=== PATIENT | male | born 1995 | race Caucasian/White ===

== ENCOUNTER 2018-06-21 20:10 | Emergency (ER) | payer SELFPAY ==
[2018-06-21] MEDS ORDERED: Ibuprofen 800 MG Tab PO ONE (20:26)
--- NOTE | 2018-06-21 20:31 | EDM.PDOC ---
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 He did not fall on it twisted but was kneeling on it and thinks he may have aggravated and move the kneecap. He did not take anything for pain prior to this and has no distal or proximal bony pain and no neurosensory changes in the leg. He says is painful to stand and put weight on it. Review of systems: As per history of present illness and below otherwise all systems reviewed and negative. Past medical history: As per history of present illness and as reviewed below otherwise noncontributory. Surgical history: As per history of present illness and as reviewed below otherwise noncontributory. Social history: No reported history of drug or alcohol abuse. Family history: As per history of present illness and as reviewed below otherwise noncontributory. Physical exam: General: Well-developed well-nourished man who is mildly overweight he is nontoxic and vital signs are noted by me. The patient is somewhat anxious in the room with my evaluation HEENT: Atraumatic, normocephalic, negative for conjunctival pallor or scleral icterus, mucous membranes moist, throat clear, neck supple, nontender, trachea midline. Lungs: Clear to auscultation, breath sounds equal bilaterally, chest nontender. Heart: S1S2, regular, rate and rhythm no overt murmurs Abdomen: Soft, nondistended, nontender. NABS Pelvis: Stable nontender. Genitourinary: Deferred. Rectal: Deferred. Extremities: Atraumatic, negative for cords or calf pain. There is full range of motion of all extremities with the exception of the right knee where the patient resists extension because he says it is discomforting. On visual inspection there is no asymmetry of the knees and there is no joint effusion on the right. Is no ecchymosis erythema or malalignment appreciated. There is tenderness with palpation at the patella and the bony surround. Neurovascular unremarkable. Neuro: Awake, alert, oriented. Cranial nerves II through XII unremarkable. Cerebellum unremarkable. Motor and sensory unremarkable throughout. Exam nonfocal. Diagnostics: XR right knee Therapeutics: Motrin crutches neoprene splint Impression: Right knee injury Definitive disposition and diagnosis as appropriate pending reevaluation and review of above. bilateral knee Pain Score (Numeric/FACES): 10 - Related Data Allergies Allergy/AdvReac Type Severity Reaction Status Date / Time No Known Allergies Allergy Verified 06/21/18 20:24 Home Meds: Home Meds . [No Known Home Meds] 06/21/18 [History] Past Medical History - Past Health History Medical/Surgical History: Denies Medical/Surgical History Musculoskeletal History: Reports: Other (See Below) Other Musculoskeletal History: Torn Ligaments to both L & R Knee - Infectious Disease History Infectious Disease History: Reports: Chicken Pox - Past Surgical History Musculoskeletal Surgical History: Reports: None Social & Family History - Family History Family Medical History: Noncontributory - Tobacco Use Smoking Status *Q: Current Every Day Smoker Years of Tobacco use: 5 Packs/Tins Daily: 0.5 - Caffeine Use Caffeine Use: Reports: Soda - Recreational Drug Use Recreational Drug Use: No Review of Systems - Review of Systems Review Of Systems: ROS reveals no pertinent complaints other than HPI. ED EXAM, GENERAL - Physical Exam Exam: See Below (See dictation) Course - Vital Signs Last Recorded V/S: Last Vital Signs Temp 36.9 C 06/21/18 20:16 Pulse 113 H 06/21/18 20:16 Resp 18 06/21/18 20:16 BP 154/94 H 06/21/18 20:16 Pulse Ox 98 06/21/18 20:16 - Orders/Labs/Meds Orders: Active Orders 24 hr Category Date Time Status DME for Discharge [COMM] Stat Oth 06/21/18 21:35 Ordered Meds: Medications Discontinued Medications Generic Name Dose Route Start Last Admin Trade Name Freq PRN Reason Stop Dose Admin Ibuprofen 800 mg 06/21/18 20:26 06/21/18 20:30 Motrin PO 06/21/18 20:27 800 mg ONETIME ONE Administration Departure - Departure Time of Disposition: 21:36 Disposition: Home, Self-Care 01 Condition: Good Clinical Impression: Right knee injury Qualifiers: Encounter type: initial encounter Qualified Code(s): S89.91XA - Unspecified injury of right lower leg, initial encounter - Discharge Information Referrals: PCP,None [Primary Care Provider] - Forms: ED Department Discharge Additional Instructions: The following information is given to patients seen in the emergency department who are being discharged to home. This information is to outline your options for follow-up care. We provide all patients seen in our emergency department with a follow-up referral. The need for follow-up, as well as the timing and circumstances, are variable depending upon the specifics of your emergency department visit. If you don't have a primary care physician on staff, we will provide you with a referral. We always advise you to contact your personal physician following an emergency department visit to inform them of the circumstance of the visit and for follow-up with them and/or the need for any referrals to a consulting specialist. The emergency department will also refer you to a specialist when appropriate. This referral assures that you have the opportunity for followup care with a specialist. All of these measure are taken in an effort to provide you with optimal care, which includes your followup. Under all circumstances we always encourage you to contact your private physician who remains a resource for coordinating your care. When calling for followup care, please make the office aware that this follow-up is from your recent emergency room visit. If for any reason you are refused follow-up, please contact the [facility] emergency department at and ask to speak to the emergency department charge nurse. [facility]--Orthopedic clinic Professional [address] [address] Ice and elevate as much as possible and wear the splint you have been given when you need to be up and about. Use crutches until you're followed up in the ortho clinic and call and schedule a follow-up appointment with the ortho clinic using resources given to above. Use [id number] ibuprofen/Motrin for pain and he can also add Tylenol. Return to ER as needed and as discussed - My Orders Last 24 Hours: My Active Orders 06/21/18 21:35 DME for Discharge [COMM] Stat - Assessment/Plan Last 24 Hours: My Active Orders 06/21/18 21:35 DME for Discharge [COMM] Stat
--- NOTE | 2018-06-21 21:29 | CR ---
Indication: Pain Technique: Three views of the right knee Comparison: None available Findings/Impression: Bones: No acute fracture or dislocation. Patella Wilma. Joint spaces: Unremarkable. Soft tissues: Unremarkable. Dictated by Rolando Franco MD @ 06/21/2018 9:27:01 PM Dictated by: Rolando Franco MD @ 06/21/2018 21:27:55 (Electronically Signed)
== END 2018-06-21 22:03 | disposition home or self-care (01) ==
LOC: MW.ED 20:10
DX: S89.91XA Unspecified injury of right lower leg, initial encounter (principal); F17.210 Nicotine dependence, cigarettes, uncomplicated; X50.9XXA Other and unspecified overexertion or strenuous movements or postures, initial encounter
CPT/HCPCS: 73562; 99283; A9270

== ENCOUNTER 2018-06-27 14:12 | Emergency (ER) | payer SELFPAY ==
--- NOTE | 2018-06-27 15:08 | EDM.PDOC ---
ED HPI GENERAL MEDICAL PROBLEM - General Chief Complaint: Lower Extremity Injury/Pain Stated Complaint: INJURED FOOT Time Seen by Provider: 06/27/18 15:02 Source of Information: Reports: Patient History Limitations: Reports: No Limitations - History of Present Illness INITIAL COMMENTS - FREE TEXT/NARRATIVE: HISTORY AND PHYSICAL: History of present illness: Patient is a 22-year-old male who presents to the emergency room requesting a work release. He states he was seen in the emergency room a few days prior and was diagnosed with a possible tendon injury of his extremity. He currently wears a knee immobilizer and is using crutches. He was encouraged to follow up with the orthopedic provider for further evaluation and management. He states he failed to make that follow-up appointment and his employer now wants him to have a work excuse to continue to use the crutches and immobilizer. He denies any current complaints or concerns. Review of systems: As per history of present illness and below otherwise all systems reviewed and negative. Past medical history: As per history of present illness and as reviewed below otherwise noncontributory. Surgical history: As per history of present illness and as reviewed below otherwise noncontributory. Social history: See social history for further information Family history: As per history of present illness and as reviewed below otherwise noncontributory. Physical exam: General: Well-developed and well-nourished 22-year-old male. Alert and oriented. Nontoxic appearing and in no acute distress. HEENT: Atraumatic, normocephalic, pupils equal and reactive bilaterally, negative for conjunctival pallor or scleral icterus, mucous membranes moist, TMs normal bilaterally, throat clear, neck supple, nontender, trachea midline. No drooling or trismus noted. No meningeal signs. No hot potato voice noted. Lungs: Clear to auscultation, breath sounds equal bilaterally, chest nontender. Heart: S1S2, regular rate and rhythm without overt murmur Abdomen: Soft, nondistended, nontender. Negative for masses or hepatosplenomegaly. Negative for costovertebral tenderness. Pelvis: Stable nontender. Genitourinary: Deferred. Rectal: Deferred. Skin: Intact, warm, dry. No lesions or rashes noted. Extremities: Nontender with palpation, patient is able to weight-bear although has been using his knee immobilizer crutches for comfort. He is negative for cords or calf pain. Neurovascular unremarkable. Neuro: Awake, alert, oriented. Cranial nerves II through XII unremarkable. Cerebellum unremarkable. Motor and sensory unremarkable throughout. Exam nonfocal. Notes: Declines the need for any repeat x-rays or evaluation. He states he is here for work excuse until he can see the orthopedic provider. He is aware that we do not do occupational employment screenings. His vital signs are stable. We'll give him a note saying he was seen in the emergency room and that he needs to follow-up with the orthopedic provider. Continue using your crutches and knee immobilizer as previously directed. Supportive care measures were reviewed and discussed. Voices understanding and is agreeable to plan of care. Denies any further questions or concerns at this time. Diagnostics: Declines Therapeutics: Declines Prescription: None Impression: Encounter for work release Plan: 1. Rest, ice, elevate the extremity as able. Continue using the crutches and immobilizer as crutches have been directed 2. Tylenol and/or ibuprofen as needed for pain management. 3. Please follow-up with the orthopedic provider and/or your primary care provider in the next 1-2 days. Return to the ED as needed and as discussed Definitive disposition and diagnosis as appropriate pending reevaluation and review of above. right knee Pain Score (Numeric/FACES): 7 - Related Data Allergies Allergy/AdvReac Type Severity Reaction Status Date / Time No Known Allergies Allergy Verified 06/21/18 20:24 Home Meds: Home Meds . [No Known Home Meds] 06/21/18 [History] Past Medical History - Past Health History Medical/Surgical History: Denies Medical/Surgical History Musculoskeletal History: Reports: Other (See Below) Other Musculoskeletal History: Torn Ligaments to both L & R Knee - Infectious Disease History Infectious Disease History: Reports: Chicken Pox - Past Surgical History Musculoskeletal Surgical History: Reports: None Social & Family History - Family History Family Medical History: Noncontributory - Caffeine Use Caffeine Use: Reports: Soda Review of Systems - Review of Systems Review Of Systems: ROS reveals no pertinent complaints other than HPI. ED EXAM, GENERAL - Physical Exam Exam: See Below (See dictation) Course - Vital Signs Last Recorded V/S: Last Vital Signs Temp 97.5 F 06/27/18 15:06 Pulse 70 06/27/18 15:21 Resp 18 06/27/18 15:21 BP 130/79 06/27/18 15:21 Pulse Ox 99 06/27/18 15:21 Departure - Departure Time of Disposition: 16:00 Disposition: Home, Self-Care 01 Clinical Impression: Return to work evaluation - Discharge Information Instructions: Medical Screening Exam Referrals: PCP,Unknown [Primary Care Provider] - Forms: ED Department Discharge Additional Instructions: The following information is given to patients seen in the emergency department who are being discharged to home. This information is to outline your options for follow-up care. We provide all patients seen in our emergency department with a follow-up referral. The need for follow-up, as well as the timing and circumstances, are variable depending upon the specifics of your emergency department visit. If you don't have a primary care physician on staff, we will provide you with a referral. We always advise you to contact your personal physician following an emergency department visit to inform them of the circumstance of the visit and for follow-up with them and/or the need for any referrals to a consulting specialist. The emergency department will also refer you to a specialist when appropriate. This referral assures that you have the opportunity for follow-up care with a specialist. All of these measure are taken in an effort to provide you with optimal care, which includes your follow-up. Under all circumstances we always encourage you to contact your private physician who remains a resource for coordinating your care. When calling for follow-up care, please make the office aware that this follow-up is from your recent emergency room visit. If for any reason you are refused follow-up, please contact the [facility] Emergency Department at and asked to speak to the emergency department charge nurse. [facility] [address] [place] [address] [id number] [address] [address] [facility] Specialty Care - Orthopedic Clinic Professional Building [address] [place] [address], [address] [place] [address] 1. Rest, ice, elevate the extremity as able. Continue using the crutches and immobilizer as crutches have been directed 2. Tylenol and/or ibuprofen as needed for pain management. 3. Please follow-up with the orthopedic provider and/or your primary care provider in the next 1-2 days. Return to the ED as needed and as discussed
== END 2018-06-27 15:21 | disposition home or self-care (01) ==
LOC: MW.ED 14:12
DX: Z02.79 Encounter for issue of other medical certificate (principal)
CPT/HCPCS: 99281

== ENCOUNTER 2018-09-27 00:04 | Emergency (ER) | payer SELFPAY ==
--- NOTE | 2018-09-27 00:45 | EDM.PDOC ---
ED HPI GENERAL MEDICAL PROBLEM - General Chief Complaint: Cardiovascular Problem Stated Complaint: CHEST PAIN AND HIGH BLOOD PRESSURE Time Seen by Provider: 09/27/18 00:12 - History of Present Illness INITIAL COMMENTS - FREE TEXT/NARRATIVE: HISTORY AND PHYSICAL: History of present illness: Patient 23-year-old white male presents with a concern of chest pain this is vaguely described without associated shortness breath nausea vomiting diaphoresis or palpitations. Review of systems: As per history of present illness and below otherwise all systems reviewed and negative. Past medical history: As per history of present illness and as reviewed below otherwise noncontributory. Surgical history: As per history of present illness and as reviewed below otherwise noncontributory. Social history: No reported history of drug or alcohol abuse. Family history: As per history of present illness and as reviewed below otherwise noncontributory. Physical exam: HEENT: Atraumatic, normocephalic, pupils reactive, negative for conjunctival pallor or scleral icterus, mucous membranes moist, throat clear, neck supple, nontender, trachea midline. Lungs: Clear to auscultation, breath sounds equal bilaterally, chest nontender. Heart: S1S2, regular, negative for clicks, rubs, or JVD. Abdomen: Soft, nondistended, nontender. Negative for masses or hepatosplenomegaly. Negative for costovertebral tenderness. Pelvis: Stable nontender. Genitourinary: Deferred. Rectal: Deferred. Extremities: Atraumatic, negative for cords or calf pain. Neurovascular unremarkable. Neuro: Awake, alert, oriented. Cranial nerves II through XII unremarkable. Cerebellum unremarkable. Motor and sensory unremarkable throughout. Exam nonfocal. Diagnostics: Chest x-ray EKG Therapeutics: None Impression: #1 atypical chest pain Definitive disposition and diagnosis as appropriate pending reevaluation and review of above. Left Chest Pain Score (Numeric/FACES): 6 - Related Data Allergies Allergy/AdvReac Type Severity Reaction Status Date / Time No Known Allergies Allergy Verified 09/27/18 00:17 Home Meds: Home Meds . [No Known Home Meds] 06/21/18 [History] Past Medical History - Past Health History Medical/Surgical History: Denies Medical/Surgical History HEENT History: Reports: None Cardiovascular History: Reports: Hypertension Respiratory History: Reports: None Gastrointestinal History: Reports: None Genitourinary History: Reports: None Musculoskeletal History: Reports: Other (See Below) Other Musculoskeletal History: Torn Ligaments to both L & R Knee Neurological History: Reports: None Psychiatric History: Reports: None Endocrine/Metabolic History: Reports: None Hematologic History: Reports: None Immunologic History: Reports: None Oncologic (Cancer) History: Reports: None Dermatologic History: Reports: None - Infectious Disease History Infectious Disease History: Reports: None - Past Surgical History Head Surgeries/Procedures: Reports: None Cardiovascular Surgical History: Reports: None Other Cardiovascular Surgeries/Procedures: untreated Musculoskeletal Surgical History: Reports: None Social & Family History - Family History Family Medical History: Noncontributory - Tobacco Use Smoking Status *Q: Current Every Day Smoker Years of Tobacco use: 5 Packs/Tins Daily: 0.3 - Caffeine Use Caffeine Use: Reports: None - Alcohol Use Days Per Week of Alcohol Use: 4 Number of Drinks Per Day: 12 Total Drinks Per Week: 48 - Recreational Drug Use Recreational Drug Use: No ED ROS GENERAL - Review of Systems Review Of Systems: ROS reveals no pertinent complaints other than HPI. ED EXAM, GENERAL - Physical Exam Exam: See Below (See dictation) Course - Vital Signs Last Recorded V/S: Last Vital Signs Temp 36.6 C 09/27/18 00:13 Pulse 100 09/27/18 00:13 Resp 20 09/27/18 00:13 BP 153/104 H 09/27/18 00:13 Pulse Ox 96 09/27/18 00:13 - Orders/Labs/Meds Orders: Active Orders 24 hr Category Date Time Status EKG Documentation Completion [RC] STAT Care 09/27/18 00:40 Active Departure - Departure Time of Disposition: 01:31 Disposition: Home, Self-Care 01 Condition: Good Clinical Impression: Atypical chest pain Referrals: PCP,None [Primary Care Provider] - Forms: ED Department Discharge Additional Instructions: The following information is given to patients seen in the emergency department who are being discharged to home. This information is to outline your options for follow-up care. We provide all patients seen in our emergency department with a follow-up referral. The need for follow-up, as well as the timing and circumstances, are variable depending upon the specifics of your emergency department visit. If you don't have a primary care physician on staff, we will provide you with a referral. We always advise you to contact your personal physician following an emergency department visit to inform them of the circumstance of the visit and for follow-up with them and/or the need for any referrals to a consulting specialist. The emergency department will also refer you to a specialist when appropriate. This referral assures that you have the opportunity for followup care with a specialist. All of these measure are taken in an effort to provide you with optimal care, which includes your followup. Under all circumstances we always encourage you to contact your private physician who remains a resource for coordinating your care. When calling for followup care, please make the office aware that this follow-up is from your recent emergency room visit. If for any reason you are refused follow-up, please contact the [facility] emergency department at and asked to speak to the emergency department charge nurse. Follow-up primary medical doctor return as needed as discussed - My Orders Last 24 Hours: My Active Orders 09/27/18 00:40 EKG Documentation Completion [RC] STAT - Assessment/Plan Last 24 Hours: My Active Orders 09/27/18 00:40 EKG Documentation Completion [RC] STAT
--- NOTE | 2018-09-27 01:20 | CR ---
INDICATION: 1 image. prior sent. shortness of breath/chest pain TECHNIQUE: Chest 1 view. COMPARISON: 02/15/18 FINDINGS: Cardiovascular and mediastinum: Heart size and vasculature are normal in caliber and appearance. Mediastinum is within normal limits. Lungs and pleural space: Lungs are clear. No sign of infiltrate or mass. No sign of pleural effusion. No pneumothorax. Bones and soft tissues: No significant findings. IMPRESSION: Unremarkable chest. Dictated by: Alireza Tobin MD @ 09/27/2018 01:20:26 (Electronically Signed)
== END 2018-09-27 01:53 | disposition home or self-care (01) ==
LOC: MW.ED 00:04
DX: R07.89 Other chest pain (principal); I10 Essential (primary) hypertension; F17.210 Nicotine dependence, cigarettes, uncomplicated
CPT/HCPCS: 71045; 71045-26; 99282; 99285-25

== ENCOUNTER 2019-03-28 13:11 | Emergency (ER) | payer SELFPAY ==
--- NOTE | 2019-03-28 13:21 | EDM.PDOC ---
ED HPI GENERAL MEDICAL PROBLEM - General Chief Complaint: Abdominal Pain Stated Complaint: SICK Time Seen by Provider: 03/28/19 13:13 Source of Information: Reports: Patient History Limitations: Reports: No Limitations - History of Present Illness INITIAL COMMENTS - FREE TEXT/NARRATIVE: HISTORY AND PHYSICAL: History of present illness: patient is a 23-year-old male who presents to the emergency room today with complaints of generalized abdominal pain has been intermittent over the past 1 month. States he has had intermittent abdominal pain that "I've been dealing with" over the past one month, which he had somewhat associated with food. He states this morning the abdominal pain had gotten worse, new onset of bilateral flank pain and he developed nausea and vomiting. He states after doing some [employer] research he felt that it was his gallbladder. Patient denies any fever, chills, headache, change in vision, syncope or near syncope. Denies any chest pain, back pain, shortness of breath or cough. Denies any diarrhea, constipation or dysuria. Has not noted any blood in urine or stool. Patient has previously been eating and drinking appropriately. Review of systems: As per history of present illness and below otherwise all systems reviewed and negative. Past medical history: As per history of present illness and as reviewed below otherwise noncontributory. Surgical history: As per history of present illness and as reviewed below otherwise noncontributory. Social history: See social history for further information Family history: As per history of present illness and as reviewed below otherwise noncontributory. Physical exam: General: well-developed and well-nourished 23-year-old male. Alert and oriented. Nontoxic appearing and in no acute distress. HEENT: Atraumatic, normocephalic, pupils equal and reactive bilaterally, negative for conjunctival pallor or scleral icterus, mucous membranes moist, TMs normal bilaterally, throat clear, neck supple, nontender, trachea midline. No drooling or trismus noted. No meningeal signs. No hot potato voice noted. Lungs: Clear to auscultation, breath sounds equal bilaterally, chest nontender. Heart: S1S2, regular rate and rhythm without overt murmur Abdomen: Soft, nondistended, nontender. Negative for masses or hepatosplenomegaly. Negative for costovertebral tenderness. Pelvis: Stable nontender. Skin: Intact, warm, dry. No lesions or rashes noted. Extremities: Atraumatic, moves all extremities per self without difficulty or deficits, negative for cords or calf pain. Neurovascular unremarkable. Neuro: Awake, alert, oriented. Cranial nerves II through XII unremarkable. Cerebellum unremarkable. Motor and sensory unremarkable throughout. Exam nonfocal. Notes: lab work is unremarkable. X-ray shows no acute findings. Patient's symptoms are vague. We did discuss the need for follow-up with general surgeon or primary care for further evaluation and management if his abdominal pain continues. At this time I did recommend he do dietary changes along with supportive care measures were reviewed and discussed. Voices understanding and is agreeable to plan of care. Denies any further questions or concerns at this time. Diagnostics: CBC, CMP, UA, Lipase Therapeutics: IV fluids, Toradol, Zofran Prescription: Tramadol, Zofran Impression: Abdominal Pain, generalized Plan: 1. Calhoun diet over the next 24-72 hours; advance as tolerated. 2. Tylenol and/or ibuprofen as needed as discussed. 3. Follow up with General Surgeon or Primary Care as we discussed. Return to the ED as needed as discussed. Definitive disposition and diagnosis as appropriate pending reevaluation and review of above. abdomen Pain Score (Numeric/FACES): 7 - Related Data Allergies Allergy/AdvReac Type Severity Reaction Status Date / Time No Known Allergies Allergy Verified 03/28/19 13:20 Home Meds: Home Meds Ondansetron [Zofran ODT] 4 mg PO Q6H PRN #8 tab.dis 03/28/19 [Rx] traMADol [Ultram] 50 mg PO Q4H PRN #15 tab 03/28/19 [Rx] Past Medical History - Past Health History Medical/Surgical History: Denies Medical/Surgical History HEENT History: Reports: None Cardiovascular History: Reports: Hypertension Respiratory History: Reports: None Gastrointestinal History: Reports: None Genitourinary History: Reports: None Musculoskeletal History: Reports: Other (See Below) Other Musculoskeletal History: Torn Ligaments to both L & R Knee Neurological History: Reports: None Psychiatric History: Reports: None Endocrine/Metabolic History: Reports: None Hematologic History: Reports: None Immunologic History: Reports: None Oncologic (Cancer) History: Reports: None Dermatologic History: Reports: None - Infectious Disease History Infectious Disease History: Reports: None - Past Surgical History Head Surgeries/Procedures: Reports: None Cardiovascular Surgical History: Reports: None Other Cardiovascular Surgeries/Procedures: untreated Musculoskeletal Surgical History: Reports: None Social & Family History - Family History Family Medical History: Noncontributory - Caffeine Use Caffeine Use: Reports: None ED ROS GENERAL - Review of Systems Review Of Systems: Comprehensive ROS is negative, except as noted in HPI. ED EXAM, GI/ABD - Physical Exam Exam: See Below (See dictation) Course - Vital Signs Last Recorded V/S: Last Vital Signs Temp 97.9 F 03/28/19 13:20 Pulse 96 03/28/19 13:20 Resp 18 03/28/19 13:20 BP 152/94 H 03/28/19 13:20 Pulse Ox 96 03/28/19 13:20 - Orders/Labs/Meds Labs: Laboratory Tests 03/28/19 03/28/19 03/28/19 Range/Units 13:25 13:35 13:35 WBC 10.87 (4.0-11.0) K/uL RBC 5.16 (4.50-5.90) M/uL Hgb 15.4 (13.0-17.0) g/dL Hct 44.9 (38.0-50.0) % MCV 87.0 (80.0-98.0) fL MCH 29.8 (27.0-32.0) pg MCHC 34.3 (31.0-37.0) g/dL RDW Std Deviation 40.6 (28.0-62.0) fl RDW Coeff of Glenn 13 (11.0-15.0) % Plt Count 277 (150-400) K/uL MPV 11.30 (7.40-12.00) fL Neut % (Auto) 74.7 (48.0-80.0) % Lymph % (Auto) 17.5 (16.0-40.0) % Faulk % (Auto) 7.4 (0.0-15.0) % Eos % (Auto) 0.3 (0.0-7.0) % Baso % (Auto) 0.1 (0.0-1.5) % Neut # (Auto) 8.1 H (1.4-5.7) K/uL Lymph # (Auto) 1.9 (0.6-2.4) K/uL Faulk # (Auto) 0.8 (0.0-0.8) K/uL Eos # (Auto) 0.0 (0.0-0.7) K/uL Baso # (Auto) 0.0 (0.0-0.1) K/uL Nucleated RBC % 0.0 /100WBC Nucleated RBCs # 0 K/uL Sodium 139 (136-148) mmol/L Potassium 3.3 L (3.5-5.1) mmol/L Chloride 100 (98-107) mmol/L Carbon Dioxide 28.4 (21.0-32.0) mmol/L BUN 13 (7.0-18.0) mg/dL Creatinine 1.1 (0.8-1.3) mg/dL Est Cr Clr Drug Dosing 113.14 mL/min Estimated GFR (MDRD) > 60.0 ml/min Glucose 121 H (74-106) mg/dL Calcium 9.3 (8.5-10.1) mg/dL Total Bilirubin 0.7 (0.2-1.0) mg/dL AST 28 (15-37) IU/L ALT 45 (14-63) IU/L Alkaline Phosphatase 113 (46-116) U/L Total Protein 8.4 H (6.4-8.2) g/dL Albumin 4.5 (3.4-5.0) g/dL Globulin 3.9 (2.6-4.0) g/dL Albumin/Globulin Ratio 1.2 (0.9-1.6) Lipase 69 L (73-393) U/L Urine Color YELLOW Urine Appearance CLEAR Urine pH 6.0 (5.0-8.0) Ur Specific [place] 1.020 (1.001-1.035) Urine Protein NEGATIVE (NEGATIVE) mg/dL Urine Glucose (UA) NEGATIVE (NEGATIVE) mg/dL Urine Ketones NEGATIVE (NEGATIVE) mg/dL Urine Occult Blood NEGATIVE (NEGATIVE) Urine Nitrite NEGATIVE (NEGATIVE) Urine Bilirubin NEGATIVE (NEGATIVE) Urine Urobilinogen 0.2 (<2.0) EU/dL Ur Leukocyte Esterase NEGATIVE (NEGATIVE) Meds: Medications Discontinued Medications Generic Name Dose Route Start Last Admin Trade Name Freq PRN Reason Stop Dose Admin Sodium Chloride 1,000 mls @ 999 mls/hr 03/28/19 13:22 03/28/19 13:38 Normal Saline IV 03/28/19 14:22 999 mls/hr STAT ONE Administration Ketorolac Tromethamine 30 mg 03/28/19 13:22 03/28/19 13:39 Toradol IVPUSH 03/28/19 13:23 30 mg ONETIME ONE Administration Ondansetron HCl 4 mg 03/28/19 13:22 03/28/19 13:41 Zofran IVPUSH 03/28/19 13:23 4 mg ONETIME ONE Administration Departure - Departure Time of Disposition: 15:17 Disposition: Home, Self-Care 01 Clinical Impression: Abdominal pain Qualifiers: Abdominal location: generalized Qualified Code(s): R10.84 - Generalized abdominal pain - Discharge Information Prescriptions: Ondansetron [Zofran ODT] 4 mg PO Q6H PRN #8 tab.dis PRN Reason: Nausea traMADol [Ultram] 50 mg PO Q4H PRN #15 tab PRN Reason: Pain Instructions: Abdominal Pain, Adult Referrals: Michael Du MD [Primary Care Provider] - Forms: ED Department Discharge Additional Instructions: The following information is given to patients seen in the emergency department who are being discharged to home. This information is to outline your options for follow-up care. We provide all patients seen in our emergency department with a follow-up referral. The need for follow-up, as well as the timing and circumstances, are variable depending upon the specifics of your emergency department visit. If you don't have a primary care physician on staff, we will provide you with a referral. We always advise you to contact your personal physician following an emergency department visit to inform them of the circumstance of the visit and for follow-up with them and/or the need for any referrals to a consulting specialist. The emergency department will also refer you to a specialist when appropriate. This referral assures that you have the opportunity for follow-up care with a specialist. All of these measure are taken in an effort to provide you with optimal care, which includes your follow-up. Under all circumstances we always encourage you to contact your private physician who remains a resource for coordinating your care. When calling for follow-up care, please make the office aware that this follow-up is from your recent emergency room visit. If for any reason you are refused follow-up, please contact the [facility] Emergency Department at and asked to speak to the emergency department charge nurse. DELMI [facility] [address] [place] [address] [facility] [address] [place] [id number] 1. Calhoun diet over the next 24-72 hours; advance as tolerated. 2. Tylenol and/or ibuprofen as needed as discussed. 3. Follow up with General Surgeon or Primary Care as we discussed. Return to the ED as needed as discussed.
[2019-03-28] MEDS ORDERED: Ondansetron 4 MG/2 ML SDV IVPUSH ONE (13:22)
[2019-03-28] MEDS ORDERED: Ketorolac 30 MG/ML SDV IVPUSH ONE (13:22)
[2019-03-28] MEDS ORDERED: Sodium Chloride 0.9% 1,000 ML IV ONE (13:22)
[2019-03-28 14:07] LABS: BLOOD UREA NITROGEN,BUN 13 mg/dL (7.0-18.0); CARBON DIOXIDE,CO2 28.4 mmol/L (21.0-32.0); CHLORIDE,CL 100 mmol/L (98-107); GLUCOSE RANDOM 121 mg/dL (74-106); LIPASE 69 U/L (73-393); POTASSIUM,K 3.3 mmol/L (3.5-5.1); SODIUM,NA 139 mmol/L (136-148)
--- NOTE | 2019-03-28 15:01 | CR ---
EXAM DATE: 03/28/19 PATIENT'S AGE: 23 Abdominal series: Frontal view of the chest was obtained as well as supine and upright views the abdomen. Comparison: No previous chest or abdominal study. Bowel gas pattern appears normal. Heart size and mediastinum are normal. Lungs are clear. Bony structures are unremarkable. No abnormal calcifications or soft tissue abnormality is seen. Impression: 1. Nothing acute is seen on abdominal series. Diagnostic code #[address] [facility]IDE HOSPITALVeronica
== END 2019-03-28 15:33 | disposition home or self-care (01) ==
LOC: MW.ED 13:11
DX: R10.84 Generalized abdominal pain (principal); R11.2 Nausea with vomiting, unspecified; I10 Essential (primary) hypertension
CPT/HCPCS: 36415; 74022; 80053; 81003; 83690; 85025; 96361; 96374; 96375; 99284; J1885; J2405; J7040; 99283

== ENCOUNTER 2019-06-20 06:33 | Day surgery (SDC) | payer SELFPAY ==
[~2019-06-20 06:33] MED LIST: Lactated Ringers 1,000 ML IV SCH; Sodium Chloride 0.9% 10 ML SDV IV PRN; Sodium Chloride 0.9% 10 ML Syringe FLUSH PRN; Sodium Chloride 0.9% 2.5 ML Syringe FLUSH PRN
[2019-06-20] MEDS ORDERED: Propofol 200 MG/20 ML SDV ONE ×2 (07:02)
[2019-06-20] MEDS ORDERED: fentaNYL 100 MCG/2 ML SDV ONE (07:02)
[2019-06-20] MEDS ORDERED: Lidocaine 2% 5 ML SDV ONE (07:02)
--- NOTE | 2019-06-20 07:09 | PCM.PREANE ---
Preanesthetic Assessment - Anesthesia/Transfusion/Family Hx Anesthesia History: No Prior Anesthesia Family History of Anesthesia Reaction: No Transfusion History: No Prior Transfusion(s) Intubation History: Unknown - Review of Systems General: No Symptoms Pulmonary: No Symptoms Cardiovascular: No Symptoms Gastrointestinal: Abdominal Pain, Vomiting (coffee ground emesis) Neurological: No Symptoms Other: Reports: None - Physical Assessment Vital Signs: Last Vital Signs Temp 36.8 C 06/20/19 06:40 Pulse 56 L 06/20/19 06:40 Resp 16 06/20/19 06:40 BP 123/70 06/20/19 06:40 Pulse Ox 98 06/20/19 06:40 Height: 5 ft 11 in Weight: 97.522 kg ASA Class: 2 Mental Status: Alert & Oriented x3 Airway Class: Mallampati = 1 Dentition: Reports: Normal Dentition Thyro-Mental Finger Breadths: 3 Mouth Opening Finger Breadths: 3 ROM/Head Extension: Full Lungs: Clear to Auscultation, Normal Respiratory Effort Cardiovascular: Regular Rate, Regular Rhythm - Allergies Allergies/Adverse Reactions: Allergies Allergy/AdvReac Type Severity Reaction Status Date / Time No Known Allergies Allergy Verified 06/15/19 08:40 - Blood Blood Available: No - Anesthesia Plan Pre-Op Medication Ordered: None - Acknowledgements Anesthesia Type Planned: MAC Pt an Appropriate Candidate for the Planned Anesthesia: Yes Alternatives and Risks of Anesthesia Discussed w Pt/Guardian: Yes Pt/Guardian Understands and Agrees with Anesthesia Plan: Yes PreAnesthesia Questionnaire - Past Health History Medical/Surgical History: Denies Medical/Surgical History HEENT History: Reports: None Cardiovascular History: Reports: Hypertension Other Cardiovascular History: untreated Respiratory History: Reports: None Gastrointestinal History: Reports: GERD Genitourinary History: Reports: None Musculoskeletal History: Reports: Other (See Below) Other Musculoskeletal History: Torn Ligaments to both L & R Knee Neurological History: Reports: None Psychiatric History: Reports: None Endocrine/Metabolic History: Reports: Obesity/BMI 30+ Hematologic History: Reports: None Immunologic History: Reports: None Oncologic (Cancer) History: Reports: None Dermatologic History: Reports: None - Infectious Disease History Infectious Disease History: Reports: None - Past Surgical History Head Surgeries/Procedures: Reports: None HEENT Surgical History: Reports: None Cardiovascular Surgical History: Reports: None Respiratory Surgical History: Reports: None GI Surgical History: Reports: None Male Surgical History: Reports: None Endocrine Surgical History: Reports: None Neurological Surgical History: Reports: None Musculoskeletal Surgical History: Reports: None Oncologic Surgical History: Reports: None Dermatological Surgical History: Reports: None - SUBSTANCE USE Smoking Status *Q: Current Every Day Smoker (1/2 ppd) Tobacco Use Within Last Twelve Months: Cigarettes - HOME MEDS Home Medications: Home Meds . [No Known Home Meds] 06/15/19 [History] - CURRENT (IN HOUSE) MEDS Current Meds: Current Medications Lactated Ringer's (Ringers, Lactated) 1,000 mls @ 125 mls/hr IV ASDIRECTED TIGRE Last Admin: 06/20/19 07:03 Dose: 125 mls/hr Sodium Chloride (Saline Flush) 10 ml FLUSH ASDIRECTED PRN PRN Reason: Keep Vein Open Sodium Chloride (Saline Flush) 2.5 ml FLUSH ASDIRECTED PRN PRN Reason: Keep Vein Open Sodium Chloride (Saline Flush) 10 ml FLUSH ASDIRECTED PRN PRN Reason: Keep Vein Open Sodium Chloride (Saline Flush) 2.5 ml FLUSH ASDIRECTED PRN PRN Reason: Keep Vein Open Sodium Chloride (Normal Saline) 10 ml IV ASDIRECTED PRN PRN Reason: IV Use Discontinued Medications Fentanyl (Sublimaze) Confirm Administered Dose 100 mcg .ROUTE .STK-MED ONE Stop: 06/20/19 07:03 Lidocaine (Xylocaine-Mpf 2%) Confirm Administered Dose 5 ml .ROUTE .STK-MED ONE Stop: 06/20/19 07:03 Propofol (Diprivan 20 Ml) Confirm Administered Dose 200 mg .ROUTE .STK-MED ONE Stop: 06/20/19 07:03 Propofol (Diprivan 20 Ml) Confirm Administered Dose 200 mg .ROUTE .STK-MED ONE Stop: 06/20/19 07:03
[2019-06-20] MEDS ORDERED: Midazolam 1 MG/ML 2 ML SDV ONE (07:26)
[2019-06-20] MEDS ORDERED: Glycopyrrolate 0.2 MG/ML SDV ONE (07:54)
--- NOTE | 2019-06-20 08:09 | PCM.OPNOTE ---
- General Post-Op/Procedure Note Date of Surgery/Procedure: 06/20/19 Operative Procedure(s): Diagnostic EGD with biopsy Findings: Normal EGD Pre Op Diagnosis: Epigastric pain, nausea and vomiting Post-Op Diagnosis: same Anesthesia Technique: MAC Primary Surgeon: Pam Hung Condition: Good
--- NOTE | 2019-06-20 08:23 | PCM.POSTAN ---
POST ANESTHESIA ASSESSMENT - MENTAL STATUS Mental Status: Alert, Oriented - VITAL SIGNS Vital Signs: Last Vital Signs Temp 36.8 C 06/20/19 06:40 Pulse 71 06/20/19 08:18 Resp 16 06/20/19 08:18 BP 96/58 L 06/20/19 08:18 Pulse Ox 99 06/20/19 08:18 - RESPIRATORY Respiratory Status: Respiratory Rate WNL, Airway Patent, O2 Saturation Stable - CARDIOVASCULAR CV Status: Pulse Rate WNL, Blood Pressure Stable - GASTROINTESTINAL GI Status: No Symptoms - PAIN Pain Score: 0 - POST OP HYDRATION Hydration Status: Adequate & Stable (VSS the patient tolerated the procedure well. There were no apparent anesthetic complications at this time. Discharge to phase II per criteria. )
--- NOTE | 2019-06-20 08:54 | PCM48HPAN ---
Post Anesthesia Note - EVALUATION WITHIN 48HRS OF ANESTHETIC Vital Signs in Normal Range: Yes Patient Participated in Evaluation: Yes Respiratory Function Stable: Yes Airway Patent: Yes Cardiovascular Function Stable: Yes Hydration Status Stable: Yes Pain Control Satisfactory: Yes Nausea and Vomiting Control Satisfactory: Yes Mental Status Recovered: Yes Vital Signs: Last Vital Signs Temp 36.8 C 06/20/19 06:40 Pulse 92 06/20/19 08:23 Resp 14 06/20/19 08:23 BP 110/62 06/20/19 08:23 Pulse Ox 96 06/20/19 08:23 - COMMENTS/OBSERVATIONS Free Text/Narrative:: no anesthesia problems
--- NOTE | 2019-06-20 11:39 | OR ---
SURGEON: PAM HUNG MD DATE OF PROCEDURE: 06/20/2019 PREOPERATIVE DIAGNOSES: Epigastric pain, nausea and vomiting. POSTOPERATIVE DIAGNOSES: Epigastric pain, nausea and vomiting. PROCEDURE PERFORMED: Diagnostic esophagogastroduodenoscopy with biopsy. PRIMARY SURGEON: Pam Hung MD. ANESTHESIA: MAC. INSTRUMENT USED: Olympus endoscope. EXTENT OF EXAM: To the second portion of duodenum. PREPARATION: Good. LIMITATIONS: None. INDICATION FOR EXAMINATION: The patient is a 23-year-old male who has been suffering from chronic nausea and vomiting as well as upper abdominal pain. The decision was made to proceed with a diagnostic EGD. I explained the procedure; expected perioperative course; and the risks including bleeding, infection, or damage to surrounding structures including perforation. The patient verbalized understanding and wishes to proceed. PROCEDURE IN DETAIL: The patient was brought into the endoscopy suite and placed in a beach chair position. A time-out was completed verifying the patient's name, age, date of , allergies, and procedure to be performed. A bite block was placed in the patient's mouth. Monitored anesthesia care was induced and continuous oxygen was provided via nasal cannula throughout the procedure. After adequate sedation was achieved, a well-lubricated endoscope was placed in the patient's mouth and advanced under direct visualization to the level of the second portion of duodenum. This appeared normal and a photograph was taken. Scope was then fully withdrawn while examining the color, texture, anatomy, and integrity of the mucosa of the upper GI tract. The duodenum appeared normal. The scope was brought into the stomach and a photograph was taken of the pylorus and GE junction. Both appeared structurally normal. Biopsies were taken of the gastric antrum, body, and fundus and sent for histologic review and H. pylori testing. The gastric mucosa showed no signs of gross inflammation or ulceration. The scope was then brought into the distal esophagus and a photograph was taken of the Z-line. This appeared grossly normal. A biopsy was taken of the esophagus 1 cm above this area and sent to Pathology, labeled as esophagus. The remainder of the esophagus appeared normal. The scope was removed and the procedure terminated. The patient tolerated the procedure well and was transferred to the PACU in stable condition. ENDOSCOPIC DIAGNOSES: Epigastric pain, nausea and vomiting. RECOMMENDATIONS: The patient has a right upper quadrant ultrasound scheduled for this Wednesday. We will follow up on the results of that. If it is normal, we will order a HIDA scan. The patient was prescribed omeprazole, but did not take it. He should start taking it starting today to see if this improves any of his symptoms. ROMEO HORNE /[id number]
== END 2019-06-20 08:55 | disposition home or self-care (01) ==
LOC: MW.SDS 06:33
PROVIDERS: ATTEND Surgery
DX: R10.13 Epigastric pain (principal); R11.2 Nausea with vomiting, unspecified; I10 Essential (primary) hypertension; K21.9 Gastro-esophageal reflux disease without esophagitis; F17.210 Nicotine dependence, cigarettes, uncomplicated; E66.9 Obesity, unspecified; Z68.30 Body mass index [BMI] 30.0-30.9, adult
CPT/HCPCS: 43239; J2001; J2250; J2704; J3010; J3490; J7120; 00813; 88305; 88312

== ENCOUNTER 2019-09-12 07:21 | Day surgery (SDC) | payer SELFPAY ==
[~2019-09-12 07:21] MED LIST changes: +Lidocaine 2% 5 ML SDV ONE; +Midazolam 1 MG/ML 2 ML SDV ONE; +Ondansetron 4 MG/2 ML SDV ONE; +Propofol 200 MG/20 ML SDV ONE; +Rocuronium 100 MG/10 ML Syringe ONE; +Succinylcholine/Sod PF 100 MG/5 ML SYRINGE IV ONE; +ceFAZolin 2 GM in Premix Bag 1 BAG IV ONE; +fentaNYL 250 MCG/5 ML SDV ONE
[2019-09-12] MEDS ORDERED: Sugammadex Sodium 200 MG/2 ML VIAL ONE (07:52)
[2019-09-12] MEDS ORDERED: Glycopyrrolate 0.2 MG/ML SDV ONE (07:55)
--- NOTE | 2019-09-12 08:07 | PCM.PREANE ---
Preanesthetic Assessment - Anesthesia/Transfusion/Family Hx Anesthesia History: No Prior Anesthesia Family History of Anesthesia Reaction: No Transfusion History: No Prior Transfusion(s) Intubation History: Unknown - Review of Systems General: No Symptoms Pulmonary: No Symptoms Cardiovascular: No Symptoms Gastrointestinal: No Symptoms Neurological: No Symptoms Other: Reports: None - Physical Assessment NPO Status Date: 09/11/19 Height: 5 ft 11 in Weight: 95.254 kg ASA Class: 5E Emergency Airway Class: Mallampati = 1 Dentition: Reports: Normal Dentition ROM/Head Extension: Full Lungs: Clear to Auscultation, Normal Respiratory Effort Cardiovascular: Regular Rate, Regular Rhythm - Allergies Allergies/Adverse Reactions: Allergies Allergy/AdvReac Type Severity Reaction Status Date / Time No Known Allergies Allergy Verified 09/06/19 11:01 - Blood Blood Available: No - Anesthesia Plan Pre-Op Medication Ordered: None - Acknowledgements Anesthesia Type Planned: General Anesthesia Pt an Appropriate Candidate for the Planned Anesthesia: Yes Alternatives and Risks of Anesthesia Discussed w Pt/Guardian: Yes Pt/Guardian Understands and Agrees with Anesthesia Plan: Yes PreAnesthesia Questionnaire - Past Health History Medical/Surgical History: Denies Medical/Surgical History HEENT History: Reports: None Cardiovascular History: Reports: Hypertension Other Cardiovascular History: states is hypertensive but does not take any medications Respiratory History: Reports: None Gastrointestinal History: Reports: GERD Other Gastrointestinal History: does not take any medication for GERD Genitourinary History: Reports: None Musculoskeletal History: Reports: Other (See Below) Other Musculoskeletal History: Torn Ligaments to both L & R Knee Neurological History: Reports: None Psychiatric History: Reports: None Endocrine/Metabolic History: Reports: Obesity/BMI 30+ Hematologic History: Reports: None Immunologic History: Reports: None Oncologic (Cancer) History: Reports: None Dermatologic History: Reports: None - Infectious Disease History Infectious Disease History: Reports: None - Past Surgical History Head Surgeries/Procedures: Reports: None - SUBSTANCE USE Smoking Status *Q: Current Every Day Smoker Tobacco Use Within Last Twelve Months: Cigarettes Recreational Drug Use History: No - HOME MEDS Home Medications: Home Meds . [No Known Home Meds] 06/15/19 [History] - CURRENT (IN HOUSE) MEDS Current Meds: Current Medications Lactated Ringer's (Ringers, Lactated) 1,000 mls @ 125 mls/hr IV ASDIRECTED TIGRE Discontinued Medications Fentanyl (Sublimaze) Confirm Administered Dose 250 mcg .ROUTE .STK-MED ONE Stop: 09/12/19 06:58 Glycopyrrolate (Robinul) Confirm Administered Dose 0.2 mg .ROUTE .STK-MED ONE Stop: 09/12/19 07:56 Cefazolin Sodium/Dextrose 2 gm (/ Premix) 50 mls @ 100 mls/hr IV ONETIME ONE Stop: 07/27/19 09:12 Lactated Ringer's (Ringers, Lactated) 1,000 mls @ 125 mls/hr IV ASDIRECTED [facility] Cefazolin Sodium/Dextrose 2 gm (/ Premix) 50 mls @ 100 mls/hr IV ONETIME ONE Stop: 09/11/19 10:31 Acetaminophen (Ofirmev) Confirm Administered Dose 100 mls @ as directed .ROUTE .STK-MED ONE Stop: 09/12/19 07:53 Lidocaine (Xylocaine-Mpf 2%) Confirm Administered Dose 5 ml .ROUTE .STK-MED ONE Stop: 09/12/19 06:58 Midazolam HCl (Versed 1 Mg/Ml) Confirm Administered Dose 2 mg .ROUTE .STK-MED ONE Stop: 09/12/19 06:58 Ondansetron HCl (Zofran) Confirm Administered Dose 4 mg .ROUTE .STK-MED ONE Stop: 09/12/19 06:58 Propofol (Diprivan 20 Ml) Confirm Administered Dose 200 mg .ROUTE .STK-MED ONE Stop: 09/12/19 06:58 Rocuronium [place] (Zemuron) Confirm Administered Dose 100 mg .ROUTE .STK-MED ONE Stop: 09/12/19 06:59 Sodium Chloride (Saline Flush) 10 ml FLUSH ASDIRECTED PRN PRN Reason: Keep Vein Open Sodium Chloride (Saline Flush) 2.5 ml FLUSH ASDIRECTED PRN PRN Reason: Keep Vein Open Sodium Chloride (Normal Saline) 10 ml IV ASDIRECTED PRN PRN Reason: IV Use Sugammadex Sodium (Bridion) Confirm Administered Dose 200 mg .ROUTE .STK-MED ONE Stop: 09/12/19 07:53
[2019-09-12] MEDS ORDERED: ceFAZolin 1 GM Vial ONE (08:08)
[2019-09-12] MEDS ORDERED: Sodium Chloride 0.9% 20 ML ONE (08:08)
[2019-09-12] MEDS ORDERED: Propofol 200 MG/20 ML SDV ONE (08:09)
[2019-09-12] MEDS ORDERED: HYDROmorphone 2 MG/ML Syringe ONE (08:09)
[2019-09-12] MEDS ORDERED: Bupivacaine 0.5% 30 ML SDV ONE (08:48)
[2019-09-12] MEDS ORDERED: Dexamethasone 4 MG/ML 5 ML MDV ONE (09:27)
[2019-09-12] MEDS ORDERED: HYDROmorphone 2 MG/ML Syringe IVPUSH ONE (10:33)
[2019-09-12] MEDS ORDERED: Ketorolac 30 MG/ML SDV ONE (10:39)
--- NOTE | 2019-09-12 10:56 | PCM.OPNOTE ---
- General Post-Op/Procedure Note Date of Surgery/Procedure: 09/12/19 Operative Procedure(s): Laparoscopic cholecystectomy, lysis of intrabdominal adhesions Findings: Dense adhesions along the proximal half of the gallbladder. Gallbladder is distended. Pre Op Diagnosis: Biliary dyskinesia Post-Op Diagnosis: Biliary dyskinesia, lysis of adhesions Anesthesia Technique: General ET Tube Primary Surgeon: Pam Hung Fluid Replacement, Intraop: 1,500 Output, Urine Amount: 400 EBL in mLs: 10 Condition: Good
[2019-09-12] MEDS ORDERED: Acetaminophen/oxyCODONE 325-5 MG Tab PO PRN (11:41)
[2019-09-12] MEDS ORDERED: oxyCODONE 5 MG Tab PO ONE (11:45)
--- NOTE | 2019-09-12 12:40 | PCM48HPAN ---
Post Anesthesia Note - EVALUATION WITHIN 48HRS OF ANESTHETIC Patient Participated in Evaluation: Yes Respiratory Function Stable: Yes Airway Patent: Yes Cardiovascular Function Stable: Yes Hydration Status Stable: Yes Pain Control Satisfactory: Yes Nausea and Vomiting Control Satisfactory: Yes Mental Status Recovered: Yes Vital Signs: Last Vital Signs Temp 97.3 F 09/12/19 11:03 Pulse 56 L 09/12/19 11:24 Resp 10 L 09/12/19 11:24 BP 108/70 09/12/19 11:24 Pulse Ox 98 09/12/19 11:24
--- NOTE | 2019-09-12 12:40 | PCM.POSTAN ---
POST ANESTHESIA ASSESSMENT - MENTAL STATUS Mental Status: Alert, Oriented - VITAL SIGNS Vital Signs: Last Vital Signs Temp 97.3 F 09/12/19 11:03 Pulse 56 L 09/12/19 11:24 Resp 10 L 09/12/19 11:24 BP 108/70 09/12/19 11:24 Pulse Ox 98 09/12/19 11:24 - RESPIRATORY Respiratory Status: Respiratory Rate WNL, Airway Patent, O2 Saturation Stable - CARDIOVASCULAR CV Status: Pulse Rate WNL, Blood Pressure Stable - GASTROINTESTINAL GI Status: No Symptoms - POST OP HYDRATION Hydration Status: Adequate & Stable
--- NOTE | 2019-09-12 13:39 | OR ---
SURGEON: PAM HUNG MD DATE OF PROCEDURE: 09/12/2019 PREOPERATIVE DIAGNOSIS: Biliary dyskinesia. POSTOPERATIVE DIAGNOSES: 1. Biliary dyskinesia. 2. Intraabdominal adhesions. PROCEDURE PERFORMED: Laparoscopic cholecystectomy, lysis of abdominal adhesions. PRIMARY SURGEON: Pam Hung MD. ANESTHESIA: General endotracheal anesthesia. FLUIDS: 1500 mL of crystalloid. ESTIMATED BLOOD LOSS: 10 mL. URINE OUTPUT: 400 mL. FINDINGS: Dense adhesions along the proximal half of the gallbladder. Gallbladder distended. COMPLICATIONS: None. INDICATIONS: The patient is a 24-year-old male who presents to my clinic with chronic right upper quadrant pain associated with nausea and vomiting. The patient underwent a right upper quadrant ultrasound which was normal and a HIDA scan which showed normal range of gallbladder function. However, the patient's symptoms were reproduced by the HIDA scan. The decision was made to remove the gallbladder. I explained the laparoscopic and possible open procedure. We discussed the expected perioperative course as well as the risks. He verbalized understanding and wished to proceed. PROCEDURE IN DETAIL: The patient was brought into the OR and placed on the OR table in supine position. A time-out was completed verifying the patient's name, age, date of , allergies, and procedure to be performed. General endotracheal anesthesia was induced. The left arm was tucked to the patient's side and a Almanza catheter placed. The abdomen was prepped and draped in usual sterile fashion. I anesthetized the infraumbilical fold with 0.5% Marcaine plain. An 11 blade was used to make an incision along the infraumbilical fold. The cautery was used to dissect down to the level of subcutaneous fat. I bluntly dissected to the level of the fascia. The fascia was elevated with Roberto's and incised sharply with the Metzenbaum scissors. The peritoneum was grasped and opened up sharply as well. Entry in the abdomen was palpated digitally. Stay sutures were placed on either side of the fascia using 0 Vicryl sutures. A 12 mm Nina trocar was inserted and the abdomen insufflated. A 5 mm 30-degree scope was inserted in the abdomen and I inspected the area underneath my initial trocar placement. No damage to surrounding structures was noted. The patient was placed into reverse Trendelenburg position and airplaned slightly to the left. 5 mm trocars were placed under direct visualization in the following locations, one in the epigastric area, one in the right flank, and one 2 fingerbreadths below the right subcostal margin in the midclavicular line. The top of the gallbladder was grasped and elevated. There were omental adhesions along the body of the gallbladder. These were taken down using hook cautery. The closer I got to the proximal aspect of the gallbladder, the denser and more difficult to remove these adhesions became. Using blunt dissection with a [place] dissector as well as an endoscopic Kittner device, I was able to take down the majority of these adhesions through meticulous dissection. Eventually, I was able to identify my infundibulum. Again, there was still a large amount of adhesions around my critical structures. I carefully dissected these out and began dissection along the proximal one-third of my cystic plate. I identified the node of Calot and began to dissect out my cystic duct and artery. Once my critical view was achieved, a photograph was taken. I doubly clipped and ligated the cystic duct and artery. Electrocautery was then used to remove the remaining attachments of the gallbladder to the gallbladder fossa. The gallbladder was then placed in an Endo Catch bag and removed through the infraumbilical port site. The port was reinserted and I inspected my operative field. It was dry and there was no evidence of any bleeding or bile leakage. A photograph of this was taken. The 5 mm trocars were then removed under direct visualization and the abdomen allowed to desufflate. The fascia at the infraumbilical port site was closed with my interrupted 0 Vicryl stay sutures. The subcutaneous fat layer was closed with interrupted 3-0 Vicryl sutures. The skin was closed with a running 4-0 Monocryl stitch. The 5 mm trocar sites were closed with interrupted 4-0 Monocryl sutures. Steri-Strips and sterile dressings were applied. All counts were complete and correct at the end of the case. The patient was transferred to the PACU in stable condition. ROMEO HORNE /[id number]
== END 2019-09-12 14:00 | disposition home or self-care (01) ==
LOC: MW.SDS 07:21
PROVIDERS: ATTEND Surgery
DX: K81.1 Chronic cholecystitis (principal); K82.8 Other specified diseases of gallbladder; I10 Essential (primary) hypertension; F17.210 Nicotine dependence, cigarettes, uncomplicated; K21.9 Gastro-esophageal reflux disease without esophagitis; E66.9 Obesity, unspecified; Z68.30 Body mass index [BMI] 30.0-30.9, adult
CPT/HCPCS: 47562; 88304; A9270; J0131; J0690; J1100; J1170; J1885; J2001; J2250; J2405; J2704; J3010; J3490; J7120; 00790; J0330

== ENCOUNTER 2019-11-17 08:22 | Emergency (ER) | payer OTHER ==
--- NOTE | 2019-11-17 09:19 | EDM.PDOC ---
<Emily England - Last Filed: 11/17/19 09:31> ED HPI GENERAL MEDICAL PROBLEM - General Chief Complaint: Respiratory Problem Stated Complaint: FEVER/CHILLS Time Seen by Provider: 11/17/19 08:45 Source of Information: Reports: Patient History Limitations: Reports: No Limitations - History of Present Illness INITIAL COMMENTS - FREE TEXT/NARRATIVE: Endorses possible exposure to COVID 7 days earlier while hanging on friends while doing fireworks. States 4 days ago having symptoms of sore throat and subjective chills. Denies any fevers, chest pain, shortness shortness of breath. Does have some cough at times but also endorses a tobacco abuse. Smokes 1 pack lasting 4 days; denies any other acute symptoms including diarrhea, constipation, chest pain, palpitations. Patient is requesting testing for colon. Throat Pain Score (Numeric/FACES): 7 - Related Data Allergies Allergy/AdvReac Type Severity Reaction Status Date / Time No Known Allergies Allergy Verified 11/17/19 08:41 Home Meds: Home Meds . [No Known Home Meds] 06/15/19 [History] Past Medical History - Past Health History Medical/Surgical History: Denies Medical/Surgical History HEENT History: Reports: None Cardiovascular History: Reports: Hypertension Other Cardiovascular History: states is hypertensive but does not take any medic ations Respiratory History: Reports: None Gastrointestinal History: Reports: GERD Other Gastrointestinal History: does not take any medication for GERD Genitourinary History: Reports: None Musculoskeletal History: Reports: Other (See Below) Other Musculoskeletal History: Torn Ligaments to both L & R Knee Neurological History: Reports: None Psychiatric History: Reports: None Endocrine/Metabolic History: Reports: Obesity/BMI 30+ Hematologic History: Reports: None Immunologic History: Reports: None Oncologic (Cancer) History: Reports: None Dermatologic History: Reports: None - Infectious Disease History Infectious Disease History: Reports: None - Past Surgical History Head Surgeries/Procedures: Reports: None Social & Family History - Family History Family Medical History: Noncontributory - Tobacco Use Smoking Status *Q: Current Every Day Smoker Years of Tobacco use: 3 Packs/Tins Daily: 3 - Caffeine Use Caffeine Use: Reports: None - Recreational Drug Use Recreational Drug Use: No ED ROS GENERAL - Review of Systems Review Of Systems: See Below Constitutional: Reports: Chills. Denies: Fever HEENT: Reports: Throat Pain. Denies: Rhinitis, Sinus Problem, Throat Swelling Respiratory: Reports: Cough. Denies: Shortness of Breath, Wheezing, Pleuritic Chest Pain, Sputum, Hemoptysis Cardiovascular: Denies: Chest Pain, Dyspnea on Exertion Endocrine: Reports: No Symptoms GI/Abdominal: Reports: No Symptoms Musculoskeletal: Reports: No Symptoms Neurological: Reports: No Symptoms Psychiatric: Reports: No Symptoms ED EXAM, GENERAL - Physical Exam Exam: See Below Reason Not Obtained: Patient was here for testing; did not perform Physical exam spoke to p Exam Limited By: No Limitations General Appearance: Alert, No Apparent Distress Respiratory/Chest: No Respiratory Distress Neurological: Alert, Oriented Psychiatric: Normal Affect, Normal Mood Departure - Departure Time of Disposition: : Disposition: Home, Self-Care 01 Clinical Impression: Exposure to COVID-19 virus - Discharge Information Instructions: Medical Screening Exam Referrals: PCP,None [Primary Care Provider] - Forms: ED Department Discharge Additional Instructions: Discontinue tobacco abuse Follow up with your PCP in 1-week Since you were exposed; please limit your exposure to others your test was negative this AM Return to the respiratory clinic here at [facility] if you are concerned about symptoms or are exposed again Sepsis Event Note (ED) - Evaluation Sepsis Screening Result: Possible Sepsis Risk <Tae Gee - Last Filed: 11/17/19 10:22> Course - Vital Signs Text/Narrative:: Patient presents with upper respiratory viral symptoms with a concerned about being exposed to COVID-19. He has stable vitals no respiratory distress COVID was negative. He with plan and the note presented by the resident. Last Recorded V/S: Last Vital Signs Temp 35.7 C L 11/17/19 08:41 Pulse 85 11/17/19 09:53 Resp 16 11/17/19 09:53 BP 122/71 11/17/19 09:53 Pulse Ox 99 11/17/19 09:53 - Orders/Labs/Meds Labs: Laboratory Tests 11/17/19 Range/Units 08:54 COVID-19 (SP) NEGATIVE (NEGATIVE) Sepsis Event Note (ED) - Focused Exam Vital Signs: Vital Signs Temp Pulse Resp BP Pulse Ox 11/17/19 09:53 85 16 122/71 99 11/17/19 08:41 35.7 C L 110 H 16 128/88 99
== END 2019-11-17 09:53 | disposition home or self-care (01) ==
LOC: MW.ED 08:22
DX: Z20.828 Contact with and (suspected) exposure to other viral communicable diseases (principal); I10 Essential (primary) hypertension; E66.9 Obesity, unspecified; F17.210 Nicotine dependence, cigarettes, uncomplicated; Z68.31 Body mass index [BMI] 31.0-31.9, adult
CPT/HCPCS: 99282; 99283; U0002

== ENCOUNTER 2019-12-13 09:21 | Emergency (ER) | payer SELFPAY ==
[2019-12-13] MEDS ORDERED: Ibuprofen 800 MG Tab PO ONE (09:56)
--- NOTE | 2019-12-13 10:06 | EDM.PDOC ---
ED HPI GENERAL MEDICAL PROBLEM - General Chief Complaint: Lower Extremity Injury/Pain Stated Complaint: RT KNEE PAIN Time Seen by Provider: 12/13/19 09:27 - History of Present Illness INITIAL COMMENTS - FREE TEXT/NARRATIVE: History of present illness: Patient presents with right knee pain. Patient states that just before arrival he was descending a ladder and his right patella dislocated he was able to put it back in and he has had patellar dislocations in the past he is having persistent right lateral inferior knee pain that is worse with weightbearing and flexion he has not taken anything as he came straight from work. No other injuries no other complaints Review of systems: As per history of present illness and below otherwise all systems reviewed and negative. Past medical history: As per history of present illness and as reviewed below otherwise noncontributory. Surgical history: As per history of present illness and as reviewed below otherwise noncontributory. Social history: No reported history of drug or alcohol abuse. Family history: As per history of present illness and as reviewed below otherwise noncontributory. Physical exam: HEENT: Atraumatic, normocephalic, pupils reactive, negative for conjunctival pallor or scleral icterus, mucous membranes moist, throat clear, neck supple, nontender, trachea midline. Lungs: Clear to auscultation, breath sounds equal bilaterally, chest nontender. Heart: S1S2, regular, negative for clicks, rubs, or JVD. Abdomen: Soft, nondistended, nontender. Negative for masses or hepatosplenomegaly. Negative for costovertebral tenderness. Pelvis: Stable nontender. Genitourinary: Deferred. Rectal: Deferred. Extremities: Atraumatic, negative for cords or calf pain. Neurovascular unremarkable. Right knee is stable there is tenderness to the anterior lateral aspect of the knee with tenderness there is no laxity to anterior posterior drawer sign. Good distal pulse motor and sensation are present Neuro: Awake, alert, oriented. Cranial nerves II through XII unremarkable. Cerebellum unremarkable. Motor and sensory unremarkable throughout. Exam nonfocal. Diagnostics: [] Therapeutics: [] Impression: [] Plan: Ice x-ray Motrin knee immobilizer and follow-up with Ortho [] Definitive disposition and diagnosis as appropriate pending reevaluation and review of above. Right Knee Pain Score (Numeric/FACES): 6 - Related Data Allergies Allergy/AdvReac Type Severity Reaction Status Date / Time No Known Allergies Allergy Verified 12/13/19 09:33 Home Meds: Home Meds Naproxen [Naprosyn] 500 mg PO Q12HR #20 tab 12/13/19 [Rx] Past Medical History - Past Health History Medical/Surgical History: Denies Medical/Surgical History HEENT History: Reports: None Cardiovascular History: Reports: Hypertension Other Cardiovascular History: states is hypertensive but does not take any medications Respiratory History: Reports: None Gastrointestinal History: Reports: GERD Other Gastrointestinal History: does not take any medication for GERD Genitourinary History: Reports: None Musculoskeletal History: Reports: Other (See Below) Other Musculoskeletal History: Torn Ligaments to both L & R Knee Neurological History: Reports: None Psychiatric History: Reports: None Endocrine/Metabolic History: Reports: Obesity/BMI 30+ Hematologic History: Reports: None Immunologic History: Reports: None Oncologic (Cancer) History: Reports: None Dermatologic History: Reports: None - Infectious Disease History Infectious Disease History: Reports: None - Past Surgical History Head Surgeries/Procedures: Reports: None Social & Family History - Family History Family Medical History: Noncontributory - Tobacco Use Smoking Status *Q: Current Every Day Smoker Years of Tobacco use: 3 Packs/Tins Daily: 0.4 - Caffeine Use Caffeine Use: Reports: Energy Drinks - Recreational Drug Use Recreational Drug Use: No Review of Systems - Review of Systems Review Of Systems: See Below ED EXAM, GENERAL - Physical Exam Exam: See Below Course - Vital Signs Text/Narrative:: 3 view right knee read interpreted by me no acute fractures dislocations are appreciated. We placed a knee immobilizer naproxen for pain discharge home follow-up with orthopedics Last Recorded V/S: Last Vital Signs Temp 36.0 C L 12/13/19 09:34 Pulse 103 H 12/13/19 09:34 Resp 17 12/13/19 09:34 BP 129/73 12/13/19 09:34 Pulse Ox 99 12/13/19 09:34 - Orders/Labs/Meds Orders: Active Orders 24 hr Category Date Time Status Cooling Warming Measures [RC] ASDIRECTED Care 12/13/19 09:56 Active Knee 3V Rt [CR] Stat Exams 12/13/19 09:57 Taken DME for Discharge [COMM] Stat Oth 12/13/19 09:56 Ordered Ice Pack [Ice Therapy] [OM.PC] Stat Oth 12/13/19 09:56 Ordered Meds: Medications Discontinued Medications Generic Name Dose Route Start Last Admin Trade Name Abelardo PRN Reason Stop Dose Admin Ibuprofen 800 mg 12/13/19 09:56 12/13/19 10:07 Motrin PO 12/13/19 09:57 800 mg ONETIME ONE Administration Departure - Departure Time of Disposition: 10:39 Disposition: Home, Self-Care 01 Condition: Good Clinical Impression: Sprain of knee, Right knee injury - Discharge Information *PRESCRIPTION DRUG MONITORING PROGRAM REVIEWED*: Not Applicable *COPY OF PRESCRIPTION DRUG MONITORING REPORT IN PATIENT MICHELINE: Not Applicable Prescriptions: Naproxen [Naprosyn] 500 mg PO Q12HR #20 tab Instructions: Patellar Dislocation Referrals: PCP,None [Primary Care Provider] - Forms: ED Department Discharge Additional Instructions: The following information is given to patients seen in the emergency department who are being discharged to home. This information is to outline your options for follow-up care. We provide all patients seen in our emergency department with a follow-up referral. The need for follow-up, as well as the timing and circumstances, are variable depending upon the specifics of your emergency department visit. If you don't have a primary care physician on staff, we will provide you with a referral. We always advise you to contact your personal physician following an emergency department visit to inform them of the circumstance of the visit and for follow-up with them and/or the need for any referrals to a consulting specialist. The emergency department will also refer you to a specialist when appropriate. This referral assures that you have the opportunity for follow-up care with a specialist. All of these measure are taken in an effort to provide you with optimal care, which includes your follow-up. Under all circumstances we always encourage you to contact your private physician who remains a resource for coordinating your care. When calling for follow-up care, please make the office aware that this follow-up is from your recent emergency room visit. If for any reason you are refused follow-up, please contact the [facility] Emergency Department at and asked to speak to the emergency department charge nurse. [facility] Professional [address], [address] [place] [address] Sepsis Event Note (ED) - Evaluation Sepsis Screening Result: No Definite Risk - Focused Exam Vital Signs: Vital Signs Temp Pulse Resp BP Pulse Ox 12/13/19 09:34 36.0 C L 103 H 17 129/73 99 - My Orders Last 24 Hours: My Active Orders 12/13/19 09:56 Cooling Warming Measures [RC] ASDIRECTED DME for Discharge [COMM] Stat Ice Pack [Ice Therapy] [OM.PC] Stat 12/13/19 09:57 Knee 3V Rt [CR] Stat - Assessment/Plan Last 24 Hours: My Active Orders 12/13/19 09:56 Cooling Warming Measures [RC] ASDIRECTED DME for Discharge [COMM] Stat Ice Pack [Ice Therapy] [OM.PC] Stat 12/13/19 09:57 Knee 3V Rt [CR] Stat
--- NOTE | 2019-12-13 10:43 | CR ---
Right knee: AP, lateral and sunrise patellar views of the right knee were obtained. Comparison: Prior right knee exam of 06/21/18 is available. Mild patella steven is seen which is a stable finding. Medial and lateral joint compartments are maintained in height. No joint effusion is seen. Patellofemoral joint appears within normal limits. Impression: 1. Stable patella steven. 2. Right knee exam is otherwise unremarkable. 3. No change from previous study is seen. Diagnostic code #2 This report was dictated in MDT
== END 2019-12-13 11:15 | disposition home or self-care (01) ==
LOC: MW.ED 09:21
DX: S83.91XA Sprain of unspecified site of right knee, initial encounter (principal); I10 Essential (primary) hypertension; E66.9 Obesity, unspecified; Z68.25 Body mass index [BMI] 25.0-25.9, adult; F17.210 Nicotine dependence, cigarettes, uncomplicated; X58.XXXA Exposure to other specified factors, initial encounter
CPT/HCPCS: 73562; 99283; A9270

== ENCOUNTER 2020-09-21 11:15 | Emergency (ER) | payer SELFPAY ==
[2020-09-21] MEDS ORDERED: Famotidine 20 MG/2 ML SDV IVPUSH ONE (13:14)
[2020-09-21] MEDS ORDERED: Ondansetron 4 MG/2 ML SDV IVPUSH ONE (13:14)
[2020-09-21] MEDS ORDERED: Dextrose 5%-0.9% NaCl 1,000 ML IV SCH (13:15)
[2020-09-21 13:45] LABS: BLOOD UREA NITROGEN,BUN 15 mg/dL (7.0-18.0); CARBON DIOXIDE,CO2 32.2 mmol/L (21.0-32.0); CHLORIDE,CL 101 mmol/L (98-107); GLUCOSE RANDOM 94 mg/dL (74-106); SODIUM,NA 140 mmol/L (136-148)
[2020-09-21] MEDS ORDERED: Dextrose 5%-Lactated Ringers 1,000 ML IV SCH (14:00)
--- NOTE | 2020-09-21 14:18 | EDM.PDOC ---
ED HPI GENERAL MEDICAL PROBLEM - General Chief Complaint: Gastrointestinal Problem Stated Complaint: CANT KEEP ANYTHING DOWN Time Seen by Provider: 09/21/20 13:11 - History of Present Illness INITIAL COMMENTS - FREE TEXT/NARRATIVE: CHIEF COMPLAINT(S): Headache HISTORY OF PRESENT ILLNESS: This is a 25-year-old man without any significant past medical history who comes to the emergency department with a chief complaint of a dehydration. The patient states that approximately 3 days ago he ate fast food at [employer]. He states that approximately 30 minutes to 1 hour after this he was not feeling well. He states that he started to experience vomiting and nausea and then developed diarrhea. He states that he has had constant vomiting and diarrhea since that time. He has not been able to tolerate any fluid. He denies any chest pain, shortness of breath, hematochezia, melena, hematemesis or bilious emesis. He states that he has had a couple of episodes of vomiting with some streaks of blood in it. He states that he does have some diffuse abdominal pain which is rated 8 out of 10 without any radiation. He states that he is not been able to tolerate any pain medications therefore there are no relieving factors. States that the pain is exacerbated by vomiting. He denies any other symptoms such as fever, chills, sore throat, runny nose, congestion. REVIEW OF SYSTEMS: Constitutional: Denies fever, chills. Eyes: Denies eye pain Ears, Nose, Mouth, & Throat: Denies earache Cardiovascular: Denies chest pain Respiratory: Denies shortness of breath Gastrointestinal: Positive for abdominal pain, nausea, vomiting, intermittent blood-streaked vomit, diarrhea. Denies hematochezia, melena, hematemesis, bilious emesis genitourinary: Denies hematuria, dysuria Skin:Denies a rash MSK: Denies joint pain Neurological: Denies blurred vision Psychiatric: Denies depression PAST MEDICAL HISTORY: As per history of present illness and as reviewed below otherwise noncontributory. SURGICAL HISTORY: As per history of present illness and as reviewed below otherwise noncontributory. SOCIAL HISTORY: As per history of present illness and as reviewed below otherwise noncontributory. FAMILY HISTORY: As per history of present illness and as reviewed below otherwise noncontributory. EXAMINATION OF ORGAN SYSTEMS/BODY AREAS: Constitutional: Blood pressure is 145/86, heart rate 99, respiratory 16 with an oxygen saturation 97% on room air. Temperature 36.7 General: Overall well-appearing man who is in no acute distress Psychiatric: Appropriate mood and affect. Eyes: No scleral icterus or conjunctival erythema ENMT: Dry mucous membranes. No pharyngeal erythema. Cardiovascular: Regular, rate, and rhythm. No gallops, murmurs, or rubs. Bilateral upper extremity pulses symmetric and intact. No peripheral edema. No JVD. Respiratory: Lungs clear to auscultation bilaterally. No wheezes, rales, or rhonchi. Gastrointestinal: Soft, non-tender, non-distended. Normoactive bowel sounds no rebound or guarding Genitourinary: No suprapubic tenderness Musculoskeletal: Normal range of motion. Skin: No lesions or abrasions. Neurological: Alert, GCS 15 MEDICAL DECISION MAKING AND COURSE IN THE ED WITH INTERPRETATION/REVIEW OF DIAGNOSTIC STUDIES: This is a 25-year-old man without any significant past medical history who comes to the emergency department with diffuse abdominal pain with nausea, vomiting, and diarrhea. I do believe that secondary to viral gastroenteritis versus food poisoning. The patient denies any melena or hematochezia therefore we will treat the patient symptomatically. He does appear to be dehydrated. We will provide the patient with 1 L of D5 normal saline provide the patient with Zofran for nausea relief. We will also provide the patient with famotidine. Will obtain basic labs including CMP. I do not believe any imaging is indicated. Laboratory: CMP reveals metabolic alkalosis with a bicarbonate of 32.2 and a mild elevation in ALT otherwise unremarkable. On reevaluation the patient stated that his nausea and pain had significantly improved. He was able to tolerate fluid at this time however given his alkalosis I did discuss patient had provide him with an additional 1 L of lactated Ringer's with D5. He was amenable to this plan. The patient continued to remain stable while in the emergency department and was able to tolerate p.o. I did discuss with him that I be sending him a prescription for famotidine and Zofran. He is to return for any new or worsening symptoms. He was amenable discharge at this time and had no further questions. DISPOSITION: The patient was discharged home in stable condition. The patient will follow up with primary care physician within 3 to 5 days CONDITION: Fair PROCEDURES: None FINAL IMPRESSION(S)/DIAGNOSES: 1. Acute abdominal pain likely secondary to gastroenteritis 2. Acute vomiting likely secondary to #1 3. Acute diarrhea likely secondary #1 Nav Sosa M.D. Abdominal Pain Score (Numeric/FACES): 8 - Related Data Allergies Allergy/AdvReac Type Severity Reaction Status Date / Time No Known Allergies Allergy Verified 09/21/20 13:13 Home Meds: Home Meds Famotidine [Pepcid] 40 mg PO BEDTIME #14 tablet 09/21/20 [Rx] Ondansetron [Zofran ODT] 4 mg PO Q6H PRN #12 tab.dis 09/21/20 [Rx] Past Medical History - Past Health History Medical/Surgical History: Denies Medical/Surgical History HEENT History: Reports: None Cardiovascular History: Reports: Hypertension Other Cardiovascular History: states is hypertensive but does not take any medications Respiratory History: Reports: None Gastrointestinal History: Reports: GERD Other Gastrointestinal History: does not take any medication for GERD Genitourinary History: Reports: None Musculoskeletal History: Reports: Other (See Below) Other Musculoskeletal History: Torn Ligaments to both L & R Knee Neurological History: Reports: None Psychiatric History: Reports: None Endocrine/Metabolic History: Reports: Obesity/BMI 30+ Hematologic History: Reports: None Immunologic History: Reports: None Oncologic (Cancer) History: Reports: None Dermatologic History: Reports: None - Infectious Disease History Infectious Disease History: Reports: Chicken Pox - Past Surgical History Head Surgeries/Procedures: Reports: None HEENT Surgical History: Reports: None Cardiovascular Surgical History: Reports: None Respiratory Surgical History: Reports: None GI Surgical History: Reports: Cholecystectomy Male Surgical History: Reports: None Endocrine Surgical History: Reports: None Neurological Surgical History: Reports: None Musculoskeletal Surgical History: Reports: None Oncologic Surgical History: Reports: None Dermatological Surgical History: Reports: None Social & Family History - Family History Family Medical History: No Pertinent Family History - Caffeine Use Caffeine Use: Reports: Coffee - Recreational Drug Use Recreational Drug Use: Yes Recreational Drug Type: Reports: Marijuana/Hashish Recreational Drug Use Frequency: Rarely ED ROS GENERAL - Review of Systems Review Of Systems: See Below ED EXAM, GENERAL - Physical Exam Exam: See Below Course - Vital Signs Last Recorded V/S: Last Vital Signs Temp 36.7 C 09/21/20 13:14 Pulse 85 09/21/20 15:57 Resp 16 09/21/20 13:14 BP 130/79 09/21/20 15:57 Pulse Ox 99 09/21/20 15:57 - Orders/Labs/Meds Labs: Laboratory Tests 09/21/20 Range/Units 13:21 Sodium 140 (136-148) mmol/L Potassium 4.0 (3.5-5.1) mmol/L Chloride 101 (98-107) mmol/L Carbon Dioxide 32.2 H (21.0-32.0) mmol/L BUN 15 (7.0-18.0) mg/dL Creatinine 0.9 (0.8-1.3) mg/dL Est Cr Clr Drug Dosing 131.81 mL/min Estimated GFR (MDRD) > 60.0 ml/min Glucose 94 (74-106) mg/dL Calcium 8.2 L (8.5-10.1) mg/dL Magnesium 2.1 (1.8-2.4) mg/dL Total Bilirubin 0.3 (0.2-1.0) mg/dL AST 32 (15-37) IU/L ALT 64 H (14-63) IU/L Alkaline Phosphatase 88 (46-116) U/L Total Protein 7.4 (6.4-8.2) g/dL Albumin 3.8 (3.4-5.0) g/dL Globulin 3.6 (2.6-4.0) g/dL Albumin/Globulin Ratio 1.1 (0.9-1.6) Meds: Medications Discontinued Medications Generic Name Dose Route Start Last Admin Trade Name Freq PRN Reason Stop Dose Admin Famotidine 20 mg 09/21/20 13:14 09/21/20 13:26 Famotidine 20 Mg/2 Ml Sdv IVPUSH 09/21/20 13:15 20 mg ONETIME ONE Administration Dextrose/Sodium Chloride 1,000 mls @ 999 mls/hr 09/21/20 13:15 09/21/20 13:26 Dextrose 5%-Normal Saline IV 999 mls/hr ASDIRECTED TIGRE Administration Dextrose/Lactated Ringer's 1,000 mls @ 999 mls/hr 09/21/20 14:00 09/21/20 14:50 Dextrose 5%-Lactated Ringers IV 999 mls/hr ASDIRECTED TIGRE Administration Ondansetron HCl 4 mg 09/21/20 13:14 09/21/20 13:26 Ondansetron 4 Mg/2 Ml Sdv IVPUSH 09/21/20 13:15 4 mg ONETIME ONE Administration Departure - Departure Time of Disposition: 15:57 Disposition: Home, Self-Care 01 Condition: Fair Clinical Impression: Gastroenteritis - Discharge Information *PRESCRIPTION DRUG MONITORING PROGRAM REVIEWED*: No *COPY OF PRESCRIPTION DRUG MONITORING REPORT IN PATIENT MICHELINE: No Prescriptions: Famotidine [Pepcid] 40 mg PO BEDTIME #14 tablet Ondansetron [Zofran ODT] 4 mg PO Q6H PRN #12 tab.dis PRN Reason: Nausea/Vomiting Instructions: Food Choices to Help Relieve Diarrhea, Adult, Nausea and Vomiting, Adult, [id number], Dehydration, Adult, [id number], Diarrhea, Adult, [id number] Referrals: PCP,None [Primary Care Provider] - Forms: ED Department Discharge Additional Instructions: You were evaluated today on an emergent basis. At this time given that your symptoms did start after eating chicken I do believe this is secondary to food poisoning. You were able to tolerate fluids in the emergency department. As discussed I will provide you with Zofran as needed for nausea relief and I would like you to take famotidine 40 mg every night at bedtime for the next 2 weeks. It is important that you maintain hydration with Gatorade or Pedialyte and start with a bland diet. You are welcome to follow-up with a primary care physician within 3 to 5 days. Please return for any new or worsening symptoms such as vomiting blood, blood in stool or inability to tolerate any fluids or food. [facility] [address] [place] [id number] [address] [address] The patient is informed of any results of their evaluation and diagnostic workup and all questions are answered. They are given discharge instructions and return precautions. The patient is stable for discharge. The patient states they understand and agree with the plan and that they will return if their symptoms get worse or if they have any new concerns. The following information is given to patients seen in the emergency department who are being discharged to home. This information is to outline your options for follow-up care. We provide all patients seen in our emergency department with a follow-up referral. The need for follow-up, as well as the timing and circumstances, are variable depending upon the specifics of your emergency department visit. If you don't have a primary care physician on staff, we will provide you with a referral. We always advise you to contact your personal physician following an emergency department visit to inform them of the circumstance of the visit and for follow-up with them and/or the need for any referrals to a consulting specialist. The emergency department will also refer you to a specialist when appropriate. This referral assures that you have the opportunity for follow-up care with a specialist. All of these measure are taken in an effort to provide you with optimal care, which includes your follow-up. Under all circumstances we always encourage you to contact your private physician who remains a resource for coordinating your care. When calling for follow-up care, please make the office aware that this follow-up is from your recent emergency room visit. If for any reason you are refused follow-up, please contact the [facility] Emergency Department at and asked to speak to the emergency department charge nurse. Sepsis Event Note (ED) - Evaluation Sepsis Screening Result: No Definite Risk - Focused Exam Vital Signs: Vital Signs Temp Pulse Resp BP Pulse Ox 09/21/20 15:57 85 130/79 99 09/21/20 13:14 36.7 C 99 16 145/86 H 97
== END 2020-09-21 15:57 | disposition home or self-care (01) ==
LOC: MW.ED 11:15
DX: K52.9 Noninfective gastroenteritis and colitis, unspecified (principal); I10 Essential (primary) hypertension; E66.9 Obesity, unspecified; Z68.25 Body mass index [BMI] 25.0-25.9, adult
CPT/HCPCS: 36415; 80053; 83735; 96374; 96375; 99284; J2405; J3490; J7042; J7121; 99283

== ENCOUNTER 2022-02-26 07:38 | Emergency (ER) | payer SELFPAY ==
[2022-02-26] MEDS ORDERED: Acetaminophen/HYDROcodone 325-5 MG Tab PO ONE (08:20)
[2022-02-26] MEDS ORDERED: Morphine 4 MG/ML Syringe IVPUSH STA (08:39)
[2022-02-26] MEDS ORDERED: Ondansetron 4 MG/2 ML SDV IVPUSH ONE (08:39)
[2022-02-26 08:40] LABS: CORONAVIRUS COVID-19 NAA POSITIVE (NEGATIVE); INFLUENZA A NAA NEGATIVE (NEGATIVE); INFLUENZA B NAA NEGATIVE (NEGATIVE)
[2022-02-26 11:28] LABS: C. TRACHOMATIS BY PCR NOT DETECTED; N. GONORRHOEAE BY PCR NOT DETECTED
== END 2022-02-26 11:43 | disposition home or self-care (01) ==
LOC: MW.ED 07:38
DX: U07.1 COVID-19 (principal); N50.811 Right testicular pain; N50.812 Left testicular pain; I10 Essential (primary) hypertension; E66.9 Obesity, unspecified; Z68.25 Body mass index [BMI] 25.0-25.9, adult
CPT/HCPCS: 0240U; 76870; 81003; 87491; 87591; 93976; 96374; 96375; 99284; A9270; J2270; J2405; 99283

== ENCOUNTER 2022-12-17 09:06 | Emergency (ER) | payer SELFPAY ==
[2022-12-17] MEDS ORDERED: Sodium Chloride 0.9% 10 ML Syringe FLUSH PRN (10:07)
[2022-12-17] MEDS ORDERED: Sodium Chloride 0.9% 2.5 ML Syringe FLUSH PRN (10:07)
[2022-12-17] MEDS ORDERED: Sodium Chloride 0.9% 1,000 ML IV ONE (10:07)
[2022-12-17 10:29] LABS: BASOPHILS PERCENT AUTO 0.2 % (0.0-1.5); EOSINOPHILS ABSOLUTE AUTO 0.1 K/uL (0.0-0.7); EOSINOPHILS PERCENT AUTO 0.9 % (0.0-7.0); HEMATOCRIT 43.9 % (38.0-50.0); LYMPHOCYTES ABSOLUTE AUTO 1.3 K/uL (0.6-2.4); LYMPHOCYTES PERCENT AUTO 22.1 % (16.0-40.0); MEAN CORPUSCULAR HEMOGLOBIN 29.7 pg (27.0-32.0); MEAN CORPUSCULAR HGB CONC 34.2 g/dL (31.0-37.0); MEAN CORPUSCULAR VOLUME 86.9 fL (80.0-98.0); MONOCYTES ABSOLUTE AUTO 0.5 K/uL (0.0-0.8); MONOCYTES PERCENT AUTO 8.3 % (0.0-15.0); NEUTROPHILS PERCENT AUTO 68.5 % (48.0-80.0); NRBC ABSOLUTE 0 K/uL; PLATELET COUNT,PLT 230 K/uL (150-400); RED BLOOD CELL COUNT 5.05 M/uL (4.50-5.90); WHITE BLOOD CELL COUNT,WBC 5.88 K/uL (4.0-11.0)
[2022-12-17 10:47] LABS: INR 1.02 (0.86-1.11)
[2022-12-17 10:57] LABS: A/G RATIO 1.2 (0.9-1.6); ALBUMIN 3.8 g/dL (3.4-5.0); BILIRUBIN TOTAL 0.5 mg/dL (0.2-1.0); CALCIUM 8.7 mg/dL (8.5-10.1); CARBON DIOXIDE,CO2 31.9 mmol/L (21.0-32.0); CREATININE 1.1 mg/dL (0.8-1.3); POTASSIUM,K 4.1 mmol/L (3.5-5.1); PROTEIN TOTAL,TP 6.9 g/dL (6.4-8.2)
[2022-12-17] MEDS ORDERED: Iopamidol 755 Mg/ML 100 ML Bottle IVPUSH ONE (11:31)
== END 2022-12-17 13:04 | disposition home or self-care (01) ==
LOC: MW.ED 09:06
DX: K60.2 Anal fissure, unspecified (principal); I10 Essential (primary) hypertension; K21.9 Gastro-esophageal reflux disease without esophagitis; E66.9 Obesity, unspecified
CPT/HCPCS: 36415; 74177; 80053; 83690; 85025; 85610; 86850; 86900; 86901; 96360; 99284; J3490; J7030; Q9967